=== PATIENT | female | born 1960 | race African-American/Black ===

== ENCOUNTER 2018-09-12 17:24 | Emergency (ER) | payer OTHER ==
[~2018-09-12] VITALS: Ht 162.6 cm; Wt 83.9 kg
[~2018-09-12 17:24] MED LIST: MOTRIN800 MG PO
== END 2018-09-12 22:02 | disposition home or self-care (01) ==
LOC: ER 17:24
DX: N39.0 Urinary tract infection, site not specified (principal); R10.12 Left upper quadrant pain

== ENCOUNTER 2020-12-19 10:32 | Inpatient (IN) | payer OTHER ==
[~2020-12-19] VITALS: Ht 154.9 cm
== END 2020-12-26 16:03 | disposition home or self-care (01) | DRG 866 ==
LOC: ER 10:32 → MEDI 18:33 → SURG 18:33
PROVIDERS: ADMIT Internal Medicine; ATTEND Internal Medicine
DX: B02.8 Zoster with other complications (principal); L03.213 Periorbital cellulitis; E03.8 Other specified hypothyroidism; Z20.822 Contact with and (suspected) exposure to COVID-19